=== PATIENT | female | born 1970 | race Caucasian/White ===

== ENCOUNTER 2017-12-29 15:26 | Emergency (ER) | payer OTHER ==
--- NOTE | 2017-12-29 15:31 | EDPHY ---
HPI/HX/ROS/PE/MDM Narrative: CHIEF COMPLAINT: Left shoulder pain secondary to fall HPI: The patient is a 47 y/o female arriving via EMS complaining of left shoulder and left neck pain secondary to a fall while skiing today. She was helmeted while skiing at [place] today, when she fell onto her outstretched left arm. Denies hitting her head or loss of consciousness. While en route to the ED, EMS administered 200mcg IV Fentanyl, 200mg IV Valium, and 8mg IV Zofran. Last PO was 12:30. No chest pain, shortness of breath, headache, abdominal pain, urinary or bowel complaints, paresthesias, numbness, fever. REVIEW OF SYSTEMS: Aside from elements discussed in the HPI, a comprehensive 10-point review of systems was reviewed and is negative. PMH: Double mastectomy SOCIAL HISTORY: Visiting [place] from [place], [facility] at bedside PHYSICAL EXAM: General: Patient is alert, in no acute distress. ENT: Eyes are normal to inspection. ENT inspection normal. Neck: Normal inspection. Full range of motion. Respiratory: No respiratory distress. Breath sounds normal bilaterally. Cardiovascular: Regular rate and rhythm. Strong peripheral pulses. Normal cap refill. Abdomen: The abdomen is nontender to palpation. There are no peritoneal signs. There are normal bowel sounds. Back: Normal to inspection. No tenderness to palpation. Skin: Normal color. No rash. Warm and dry. Left Arm: Obvious AC stepoff of left shoulder. No clavicle tenderness. Light touch sensation and motor function is preserved in the axillary, median, radial and ulnar nerve distributions. There is a 2+ radial pulse with brisk cap refill. Neuro: Oriented x3. Normal motor function. Normal sensory function. ED Course: 1540: I reviewed the patient's left shoulder x-ray, which reveals an anterior dislocation. 1557: I assisted POLO Jarquin with counter-traction during the reduction. The shoulder is still not able to be reduced. She will need to be consciously sedated. Denies history of adverse reaction to anesthesia or problems with surgery. 1625: Procedure: Conscious sedation. Indication: Left shoulder dislocation I was asked by POLO Jarquin to perform procedural sedation. The patient is an appropriate candidate to tolerate procedural sedation. The patient's vitals signs and mental status are appropriate. The risks, benefits and alternatives of the sedation were discussed with the patient. The patient is ASA classification 1. The patient's Mallampati airway score was 1 and the patient did meet the 3-3-2 airway measurements. A time out was completed. The patient was sedated with 160mg IV Propofol. The patient was monitored with continuous pulse oximetry, conveyor monitor and end tidal CO2. There were no complications and no significant hypoxemia. I performed the sedation. The total time I spent at the bedside during the procedural sedation was 20 minutes. The patient was examined after the procedural sedation and has returned to their pre-sedation baseline with normal vital signs and a normal examination. 1659: I reviewed patient's post-reduction x-ray. Her shoulder is back in place but there is a large Hill-Sach's deformity. 1701: Reassessed patient, she is awake and talking after the sedation. Left Arm Exam: Light touch sensation and motor function is preserved in the axillary, median, radial and ulnar nerve distributions. There is a 2+ radial pulse with brisk cap refill. I discussed a follow up with an orthopedic surgeon within one week, she has been referred to Dr. Macdonald. Return precautions provided; patient is comfortable with this plan. 1 tab PO Percocet administered for pain prior to discharge. MDM: This patient presents with traumatic shoulder dislocation without signs of other injury. Her should reduction was techincally quite difficult, and required multiple attempts with multiple assistants, even with conscious sedation. The patient was informed of this post-procedure and she denies current complaints. I see no signs of neurovascular injury. - Data Points Imaging Results: Imaging Impressions Shoulder X-Ray 12/29/17 15:30 Impression: Anterior dislocation of the left shoulder with suspected associated Hill-Sachs fracture. Shoulder X-Ray 12/29/17 16:39 Impression: Successful reduction of the anterior shoulder dislocation. Imaging: I viewed and interpreted images myself Medications Given: Discontinued Medications Fentanyl (Sublimaze) 50 mcg IVP EDNOW ONE Stop: 12/29/17 16:02 Last Admin: 12/29/17 17:31 Dose: Not Given Ibuprofen (Motrin) 600 mg PO EDNOW ONE Stop: 12/29/17 17:08 Last Admin: 12/29/17 17:11 Dose: 600 mg Oxycodone/Acetaminophen (Percocet 5/325) 1 tab PO EDNOW ONE Stop: 12/29/17 17:21 Last Admin: 12/29/17 17:33 Dose: 1 tab Propofol (Diprivan) 160 mg IVP EDNOW ONE Stop: 12/29/17 16:58 Last Admin: 12/29/17 17:00 Dose: 160 mg General Initial Vital Signs: Initial Vital Signs Temperature (C) 36.8 C 12/29/17 15:30 Heart Rate 88 12/29/17 15:30 Respiratory Rate 16 12/29/17 15:30 Blood Pressure 147/86 H 12/29/17 15:30 O2 Sat (%) 100 12/29/17 15:30 O2 Delivery Mode [Post Non-Rebreather Mask Procedure 1st] O2 Delivery Mode [Procedural Non-Rebreather Mask 3rd] O2 Delivery Mode [Procedural Non-Rebreather Mask 2nd] O2 Delivery Mode [Procedural Non-Rebreather Mask 1st] O2 Delivery Mode Room Air O2 (L/minute) [Post Procedure 15 1st] O2 (L/minute) [Procedural 3rd] 15 O2 (L/minute) [Procedural 2nd] 15 O2 (L/minute) [Procedural 1st] 15 O2 (L/minute) 2 Allergies/Adverse Reactions: No Known Allergies Allergy (Unverified 12/29/17 17:00) Home Medications: Medication Instructions Recorded oxyCODONE/APAP 5/325 [Percocet 1 - 2 tab PO Q4H PRN #14 tab 12/29/17 5/325 (*)] Departure - Departure Disposition: Home, Routine, Self-Care Clinical Impression: Dislocation of left shoulder joint, Skiing accident Condition: Good Instructions: Shoulder Dislocation (ED) Additional Instructions: Rest, ice, elevation. Take Percocet as prescribed for pain. Follow up with an orthopedic surgeon within one week. Return to the emergency department for worsening pain, swelling, numbness, weakness or other concerns. Wear sling at all times until reevaluation. Referrals: Morgan Macdonald MD [Medical Doctor] - As per Instructions [facility],. [Clinic] - As per Instructions Prescriptions: oxyCODONE/APAP 5/325 [Percocet 5/325 (*)] 1 - 2 tab PO Q4H PRN #14 tab PRN Reason: Pain, Severe Report Scribed for: Nain Herrera Report Scribed by: Neha Jay Date of Report: 12/29/17 Time of Report: 16:17 Physician Review and Approval Statement: Portions of this note were transcribed by an ED scribe. I personally performed the history, physical exam, and medical decision making; and confirm the accuracy of the information in the transcribed note.
[2017-12-29 15:38] VITALS: TEMP 98.2
[2017-12-29] MEDS ORDERED: fentaNYL 100 MCG/2 ML INJ IVP ONE ×2 (16:01→16:52)
[2017-12-29] MEDS ORDERED: PROPOFOL 200 MG/20 ML VIAL ONE (16:25)
[2017-12-29 16:52] VITALS: RESP 18
[2017-12-29] MEDS ORDERED: PROPOFOL 200 MG/20 ML VIAL IVP ONE (16:57)
[2017-12-29] MEDS ORDERED: IBUPROFEN 600 MG TAB PO ONE (17:07)
[2017-12-29] MEDS ORDERED: OXYCODONE/APAP 5/325 TAB PO ONE (17:20)
[2017-12-29 17:38] VITALS: BP 117/75; PULSE 97; O2SAT 96
== END 2017-12-29 17:47 | disposition home or self-care (01) ==
LOC: EDBD 15:26
PROC: 0RSKXZZ Reposition Left Shoulder Joint, External Approach (ICD-10-PCS; principal; 2017-12-29)
DX: S43.015A Anterior dislocation of left humerus, initial encounter (principal); V00.321A Fall from snow-skis, initial encounter; Y92.89 Other specified places as the place of occurrence of the external cause; Y99.8 Other external cause status; Y93.23 Activity, snow (alpine) (downhill) skiing, snowboarding, sledding, tobogganing and snow tubing
CPT/HCPCS: A4565; J2704